=== PATIENT | male | born 1995 | race Caucasian/White ===

== ENCOUNTER 2024-12-17 11:50 | Emergency (ER) | payer SELFPAY ==
[~2024-12-17] VITALS: Ht 177.8 cm; Wt 65.8 kg
[2024-12-17] MEDS ORDERED: CEPHALEXIN500 M1 PO (12:25)
[2024-12-17] MEDS ORDERED: Tdap Vaccine 0.5 ML SYR (Adult Vaccine) IM ONE (12:25)
[2024-12-17] MEDS ORDERED: Bacitracin Zinc 14 GM TUBE T ONE (12:30)
[2024-12-17] MEDS ORDERED: CEPHALEXIN 500 MG CAP PO ONE (12:30)
== END 2024-12-17 12:31 | disposition home or self-care (01) ==
LOC: ED 11:50
DX: S81.801A Unspecified open wound, right lower leg, initial encounter (principal); W18.42XA Slipping, tripping and stumbling without falling due to stepping into hole or opening, initial encounter; Y93.89 Activity, other specified; Y92.89 Other specified places as the place of occurrence of the external cause; Y99.8 Other external cause status